=== PATIENT | female | born 1950 | race Caucasian/White ===

== ENCOUNTER 2017-08-08 13:18 | Emergency (ER) | payer MEDICARE, BC ==
[~2017-08-08] VITALS: Ht 157.5 cm; Wt 76.7 kg
[~2017-08-08 13:18] MED LIST: AMLODIPINE BESY10 MG PO; ASPIR 8181 MG PO; ASPIRIN325 PO; CALCIUM ACETAT667 MG PO; CLONAZEPAM 0.50.5 M1 PO; CRESTOR10 MG PO; CYMBALTA30 MG PO; CYMBALTA60 MG PO; EFFEXOR XR75 MG PO; EFFIENT10 MG PO; HUMALOG100 UNIT/1 SUBQ; HYDROCODONE-AP1 EAC6 PO; IMDUR 60 MG TAB60 M1 PO; LANTUS100 UNIT/M SUBQ; LEVEMIR SUBQ; LEVOTHYROXIN0.088 MG PO; LEVOTHYROXINE 0.1 MG PO; LOPRESSOR50 PO; MELATONIN1 MG PO; MICARDIS 80 MG80 MG PO; NOVOLOG100 UNIT/1 SUBQ; OCUVITE TABLET1 EAC1 PO; OMEPRAZOLE 20 M20 M1 PO; PLAVIX 75 MG TA75 M1 PO; PRILOSEC20 MG PO; RENAL VITAMIN0.8 MG; SINEMET CR 25-1 EACH PO; SODIUM BICARBO650 M3 PO; VENLAFAXIN75 MG/1 T2; [UNRECOGNIZED DRUG - OTHER] PO
[2017-08-08] MEDS ORDERED: ZANTAC 150MG T150 MG PO (13:34)
[2017-08-08] MEDS ORDERED: RENAL CAPS SOFTG1 MG PO (13:35)
[2017-08-08] MEDS ORDERED: SLEEP AID25 M1 PO (13:35)
[2017-08-08] MEDS ORDERED: ZYRTEC10 M5 PO (13:35)
[2017-08-08] MEDS ORDERED: KEFLEX500 M1 PO (14:27)
[2017-08-08 15:08] VITALS: BP 150/64
== END 2017-08-08 15:08 | disposition home or self-care (01) ==
LOC: M.ERS 13:18
DX: S61.209A Unspecified open wound of unspecified finger without damage to nail, initial encounter (principal); L08.9 Local infection of the skin and subcutaneous tissue, unspecified; I10 Essential (primary) hypertension; E11.9 Type 2 diabetes mellitus without complications; E89.0 Postprocedural hypothyroidism; Z88.7 Allergy status to serum and vaccine; Z95.5 Presence of coronary angioplasty implant and graft; Z95.1 Presence of aortocoronary bypass graft; Z90.710 Acquired absence of both cervix and uterus; Z90.49 Acquired absence of other specified parts of digestive tract; Z90.11 Acquired absence of right breast and nipple; X58.XXXA Exposure to other specified factors, initial encounter; Y93.89 Activity, other specified; Y92.89 Other specified places as the place of occurrence of the external cause; Y99.8 Other external cause status

== ENCOUNTER → 2017-08-12 | Outpatient (CLI) | payer MEDICARE, BC ==
[~2017-08-12] MED LIST changes: +KEFLEX500 M1 PO; +RENAL CAPS SOFTG1 MG PO; +SLEEP AID25 M1 PO; +ZANTAC 150MG T150 MG PO; +ZYRTEC10 M5 PO
== END ==
LOC: M.WC 01:51
DX: E11.621 Type 2 diabetes mellitus with foot ulcer (principal); L97.511 Non-pressure chronic ulcer of other part of right foot limited to breakdown of skin; I10 Essential (primary) hypertension; E03.9 Hypothyroidism, unspecified; Z85.828 Personal history of other malignant neoplasm of skin; Z99.2 Dependence on renal dialysis; Z95.1 Presence of aortocoronary bypass graft; Z96.651 Presence of right artificial knee joint; Z90.49 Acquired absence of other specified parts of digestive tract; Z79.4 Long term (current) use of insulin; Z79.82 Long term (current) use of aspirin

== ENCOUNTER → 2017-08-19 | Outpatient (CLI) | payer MEDICARE, BC | LOC: M.WC 01:33 | DX: E11.622 Type 2 diabetes mellitus with other skin ulcer (principal); L98.491 Non-pressure chronic ulcer of skin of other sites limited to breakdown of skin; I10 Essential (primary) hypertension; E03.9 Hypothyroidism, unspecified; Z99.2 Dependence on renal dialysis; Z85.828 Personal history of other malignant neoplasm of skin; Z95.1 Presence of aortocoronary bypass graft; Z96.651 Presence of right artificial knee joint ==

== ENCOUNTER → 2017-08-26 | Outpatient (CLI) | payer MEDICARE, BC | LOC: M.WC 02:01 | DX: E11.622 Type 2 diabetes mellitus with other skin ulcer (principal); L98.491 Non-pressure chronic ulcer of skin of other sites limited to breakdown of skin; E03.9 Hypothyroidism, unspecified; I10 Essential (primary) hypertension; Z99.2 Dependence on renal dialysis; Z85.828 Personal history of other malignant neoplasm of skin; Z95.1 Presence of aortocoronary bypass graft ==

== ENCOUNTER → 2018-12-21 | Outpatient (CLI) | payer MEDICARE, BC ==
--- NOTE | 2018-12-21 17:27 | CARDNUC ---
[place] [address] CARDIAC NUCLEAR IMAGING REPORT Name: JOSE RDARRYN Room: [facility]#: [id number] Admission: 12/21/18 Attend Phys: Mary Guzman Discharge: Date of : 52 Date of Service: 12/21/18 1726 Report #: [id number] THIS REPORT FOR: //name// APPROVED REPORT Study performed: 12/21/2018 13:15:00 Indication: Dyspnea, s/p CABG Patient Location: Out-Patient Stress Tech: Keyla Coker Stress Nurse: Monique Holliday RN Ht: 5 ft 2 in Wt: 169 lbs BSA: 1.78 m2 BMI: 30.90 Medical History Medical History: SOB, CAD s/p CABG, CAD s/p MS, Carotid artery disease, CKD, Diabetes, Fatigue, HTN, Hyperlipidemia, SOB, Weakness, Peritoneal Dialysis. Medications: ASA 81 mg, Carvedilol, Clopidogrel, Insulin, Rosuvastatin. Allergies: Tetanus Antitoxin, Iodine. Cardiac Risk Factors: Age, Diabetes (insulin), FHX of CAD, HTN, Hyperlipidemia, SOB, ESRD, Peritoneal Dialysis, Bilateral Carotid Stenosis. Previous Cardiac Procedures: Myocardial infarction, CABG. Pretest Chest Pain Characteristics: No chest pain Exercise History: Sedentary Physical Disabilities: Peritoneal Dialysis, Weakness, Fatigue, SOA, Neuropathy. Meds Held (24 hrs): Metoprolol. Resting Data Rest SPECT myocardial perfusion imaging was performed in supine position 30 minutes following the intravenous injection of 12.0 mCi of Tc-99m Sestamibi. Time of rest injection: 13:25 The images were gated to evaluate regional wall motion and calculate left ventricular ejection fraction. Administration Route: IV Administration Site: Left Hand Pharmacologic Stress Pharmacologic stress test was performed by injecting Regadenoson 0.4 mg IV push over 10-15 seconds immediately [place] [address] CARDIAC NUCLEAR IMAGING REPORT Name: DARRYN ODELL [id number] Admission: 12/21/18 Attend Phys: Mary Guzman Discharge: Date of : 52 Date of Service: 12/21/18 1726 Report #: [id number] injection of 29.1 mCi of Tc-99m Sestamibi. Time of stress injection: 15:35 Administration Route: IV Administration Site: Left Hand Heart Rate at time of stress injection: 76 bpm. Gated Stress SPECT was performed 45 minutes after stress injection. The images were gated to evaluate regional wall motion and calculate left ventricular ejection fraction. Prone imaging was performed. Stress Test Details Stress Test: Pharmacologic stress testing performed using 0.4 mg of regadenoson per 5 mL given IV over 10 seconds. Reason for pharmacologic stress test: Peritoneal Dialysis, SOA, Weakness/Fatigue, Neuropathy.. HR Max Heart Rate (APMHR): 153 bpm Resting HR: 76 bpm Target HR (85% APMHR): 130 bpm Max HR Achieved: 84 bpm % of APMHR: 54 Recovery HR: 78 bpm BP Resting BP: 126/66 mmHg Max BP: 106/51 mmHg Recovery BP: 117/55 mmHg ECG Resting ECG: Sinus Rhythm, nonspecific ST-T abnormalities Stress ECG: Sinus Rhythm, nonspecific ST-T abnormalities ST Change: None Arrhythmia: None Recovery ECG: Sinus Rhythm, nonspecific ST-T abnormalities Recovery ST Change: None Recovery Arrhythmia: None Clinical Reason for Termination: Completed protocol Stress Symptoms: Heaviness in arms. Exercise duration: 0 min 0 sec Exercise capacity: 1.00 METs The patient tolerated Lexiscan infusion [place] [address] CARDIAC NUCLEAR IMAGING REPORT Name: JOSE RDARRYN Room: [facility]#: [id number] Admission: 12/21/18 Attend Phys: Mary Guzman Discharge: Date of : 52 Date of Service: 12/21/18 1726 Report #: [id number] Nurse Comments 68 year old female peritoneal dialysis patient presented in wheelchair with recent HX of increased SOA with HX of MS and CABG. Sitting Lexiscan well tolerated. Recovery unremarkable with PO caffeine. Patient escorted via wheelchair by staff to Nuclear Medicine for images. Patient stable with no complaints at that time. Stress ECG Conclusion The baseline 12-lead EKG shows sinus rhythm with nonspecific ST and T wave depression. EKGs obtained during and post Lexiscan infusion showed sinus rhythm without significant ST or T wave changes when compared to baseline. There were no stress-induced arrhythmias. Study Quality Study: Good Artifact: No artifact Study Data At rest, the left ventricular ejection fraction was 35%.. Post stress, the left ventricular ejection was 38%.. TID = 1.02. Perfusion Perfusion images show a moderate size severe intensity defect involving the basal to distal inferior and inferolateral wall consistent with prior infarct. There were no reversible defects identified. Wall Motion There is mild global hypokinesis with akinesis of the mid to distal inferolateral wall. Nuclear Conclusion ECG Findings: non-diagnostic Clinical Findings: negative for ischemia Nuclear Findings: negative for ischemia Exercise Capacity: not assessed Left Ventricular Function: abnormal Myocardial perfusion images suggest prior infarct of the inferolateral wall. There were no reversible defects to suggest ongoing ischemia. Left ventricular systolic function is moderately decreased with wall motion and normal LV systolic above consistent [place] [address] CARDIAC NUCLEAR IMAGING REPORT Name: JOSE RDARRYN [facility] [id number] Admission: 12/21/18 Attend Phys: Mary Guzman Discharge: Date of : 52 Date of Service: 12/21/18 1726 Report #: [id number] <Conclusion> The baseline 12-lead EKG shows sinus rhythm with nonspecific ST and T wave depression. EKGs obtained during and post Lexiscan infusion showed sinus rhythm without significant ST or T wave changes when compared to baseline. There were no stress-induced arrhythmias. <ELECTRONICALLY SIGNED> By: Tu Garcia MD, [facility] 12/21/181725 25 25 Tu Garcia MD, FACC /INF
== END ==
LOC: M.NUC 11-26 16:02 → M.CRD 12-14 15:00 → M.NUC 12-14 16:00
DX: I25.10 Atherosclerotic heart disease of native coronary artery without angina pectoris (principal); I12.9 Hypertensive chronic kidney disease with stage 1 through stage 4 chronic kidney disease, or unspecified chronic kidney disease; E11.22 Type 2 diabetes mellitus with diabetic chronic kidney disease; N18.6 End stage renal disease; E78.5 Hyperlipidemia, unspecified; I65.23 Occlusion and stenosis of bilateral carotid arteries; Z95.1 Presence of aortocoronary bypass graft; Z95.5 Presence of coronary angioplasty implant and graft; Z88.7 Allergy status to serum and vaccine; Z99.2 Dependence on renal dialysis; Z79.4 Long term (current) use of insulin; Z82.49 Family history of ischemic heart disease and other diseases of the circulatory system